=== PATIENT | male | born 1980 | race Caucasian/White ===

== ENCOUNTER 2017-06-03 13:49 | Inpatient (IN) | payer OTHER ==
[2017-06-03] MEDS ORDERED: NORMAL SALINE 1000 ML 1,000 ML IV ONE (14:52)
--- NOTE | 2017-06-03 14:53 | ER Document Report ---
ED Medical Screen (RME) - General Chief Complaint: Fever Stated Complaint: FEVER Time Seen by Provider: 06/03/17 14:44 Notes: 36-year-old male here with 10 days of fevers (up to 102.6 Fahrenheit) as well as 4 days of dry cough. He has been taking Advil and Tylenol for the symptoms and these medications have helped significantly with the fever. He denies any runny nose sore throat ear pain chest pain shortness of breath nausea vomiting diarrhea abdominal pain dysuria frequency hesitancy. He has not been bitten by a tick recently. What concerned him today is that his heart rate was very elevated so he came here. His resting heart rate is usually in the 70s, he reports. EXAM Moderately tachycardic low 130s TRAVEL OUTSIDE OF THE [place] IN LAST 30 DAYS: No - Related Data Allergies/Adverse Reactions: No Known Allergies Allergy (Verified 06/03/17 13:50) Physical Exam - Vital signs Vitals: Temp Pulse Resp BP Pulse Ox 98.5 F 136 H 18 146/78 H 100 06/03/17 14:08 06/03/17 14:08 06/03/17 14:08 06/03/17 14:08 06/03/17 14:08 Course - Vital Signs Vital signs: Temp Pulse Resp BP Pulse Ox 98.5 F 136 H 18 146/78 H 100 06/03/17 14:08 06/03/17 14:08 06/03/17 14:08 06/03/17 14:08 06/03/17 14:08
[2017-06-03 15:15] LABS: APPEARANCE,URINE CLEAR; BILIRUBIN,URINE NEGATIVE (NEGATIVE); COLOR,URINE STRAW; GLUCOSE, URINE NEGATIVE (NEGATIVE); KETONES,URINE NEGATIVE (NEGATIVE); LEUKOCYTE ESTERASE,URINE NEGATIVE (NEGATIVE); NITRITE,URINE NEGATIVE (NEGATIVE); PROTEIN,URINE NEGATIVE (NEGATIVE); URINE SPECIFIC GRAVITY 1.005; UROBILINOGEN,URINE NEGATIVE mg/dL (<2.0)
[2017-06-03 15:48] LABS: ALANINE AMINOTRANSFERASE 45 U/L (21-72); ALBUMIN 4.3 g/dL (3.5-5.0); ALKALINE PHOSPHATASE 59 U/L (38-126); ANION GAP 15 (5-19); ASPARTATE AMINO TRANSFERASE 25 U/L (17-59); BILIRUBIN,DIRECT 0.2 mg/dL (0.0-0.4); BILIRUBIN,TOTAL 0.3 mg/dL (0.2-1.3); BLOOD UREA NITROGEN 15 mg/dL (7-20); CALCIUM 10.1 mg/dL (8.4-10.2); CARBON DIOXIDE 28 mmol/L (22-30); CHLORIDE 104 mmol/L (98-107); GLUCOSE 95 mg/dL (75-110); POTASSIUM 4.8 mmol/L (3.6-5.0); SODIUM 146.6 mmol/L (137-145); TOTAL PROTEIN 7.2 g/dL (6.3-8.2)
[2017-06-03 15:50] LABS: ABSOLUTE EOSINOPHILS # (AUTO) 0.1 10^3/uL (0.0-0.6); ABSOLUTE LYMPHOCYTES (AUTO) 0.9 10^3/uL (0.5-4.7); ABSOLUTE MONOCYTES (AUTO) 0.9 10^3/uL (0.1-1.4); ABSOLUTE NEUT (AUTO) 5.3 10^3/uL (1.7-8.2); BASOPHILS % (AUTO) 0.4 % (0-2); EOSINOPHILS % (AUTO) 0.9 % (0-6); HEMATOCRIT 45.5 % (37.9-51.0); HEMOGLOBIN 15.2 g/dL (13.5-17.0); LYMPHOCYTES % (AUTO) 12.9 % (13-45); MEAN CORPUSCULAR HEMOGLOBIN 30.5 pg (27.0-33.4); MEAN CORPUSCULAR HGB CONC 33.4 g/dL (32.0-36.0); MEAN CORPUSCULAR VOLUME 91 fl (80-97); MONOCYTES % (AUTO) 12.9 % (3-13); PLATELET COUNT 348 10^3/uL (150-450); RED BLOOD COUNT 4.99 10^6/uL (4.35-5.55); RED CELL DISTRIBUTION WIDTH 13.5 % (11.5-14.0); SEGMENTED NEUTROPHILS % (AUTO) 72.9 % (42-78); TOTAL CELLS COUNTED % (AUTO) 100 %; WHITE BLOOD COUNT 7.3 10^3/uL (4.0-10.5)
--- NOTE | 2017-06-03 15:58 | RADIOLOGY REPORT (SQ) ---
EXAM DESCRIPTION: CHEST PA/LAT COMPLETED DATE/TIME: 06/03/2017 3:46 pm REASON FOR STUDY: fever, tachycardic; eval for pneumonia COMPARISON: None. EXAM PARAMETERS: NUMBER OF VIEWS: two views TECHNIQUE: Digital Frontal and Lateral radiographic views of the chest acquired. RADIATION DOSE: NA LIMITATIONS: none FINDINGS: LUNGS AND PLEURA: Abnormal increased density in the left upper lobe consistent with pneumo brandon. Remainder lungs are clear. No effusions are identified. MEDIASTINUM AND HILAR STRUCTURES: No masses or contour abnormalities. HEART AND VASCULAR STRUCTURES: Heart normal size. No evidence for failure. BONES: No acute findings. HARDWARE: None in the chest. OTHER: No other significant finding. IMPRESSION: Left upper lobe pneumonia. TECHNICAL DOCUMENTATION: JOB ID: [id number] [employer]- All Rights Reserved
[2017-06-03] MEDS ORDERED: CEFTRIAXONE 1 GM/D5W RTU 1 GM/50 ML RTUPB IV ONE (15:59)
--- NOTE | 2017-06-03 16:17 | ER Document Report ---
ED Fever - General Mode of Arrival: Ambulatory Information source: Patient TRAVEL OUTSIDE OF THE [place] IN LAST 30 DAYS: No - HPI Patient complains to provider of: Fever Onset: Other - 9 days ago Associated symptoms: Other - see notes above <JANNIE DEAL - Last Filed: 06/03/17 17:04> <ANDIMASSIMOROBIN - Last Filed: 06/03/17 19:08> - General Chief Complaint: Fever Stated Complaint: FEVER Time Seen by Provider: 06/03/17 14:44 Notes: 36 year old male with history of hypertension (medicated with Losarten) and Raynaud's presents to the ED complaining of having a fever that started 9 days ago. Patient reports that he has been alternating Advil and Tylenol every 4 hours with some improvement. Patient reports that over the past 3 days his temperature has been steady at 99F, with spikes into 101F. Patient additionally complains of a non-productive cough that started 6 days ago (used Delsym today) , racing heart, rhinorrhea, and mild chest tightness, but no pain. Patient denies vomiting or diarrhea. Patient recently had a 2.5 hour flight from [place], [place]. No history of blood clots. Patient has no concerns over HIV or any other STDs. Patient denies having sex with other men or prostitutes. (JANNIE DEAL) - Related Data Allergies/Adverse Reactions: No Known Allergies Allergy (Verified 06/03/17 13:50) Home Medications: Current Home Medications Losartan Potassium [Cozaar 25 mg Tablet] 25 mg PO DAILY 06/03/17 [History] Past Medical History - General Information source: Patient - Social History Smoking Status: Never Smoker Chew tobacco use (# tins/day): No Frequency of alcohol use: None Drug Abuse: None Family History: Reviewed & Not Pertinent Patient has suicidal ideation: No Patient has homicidal ideation: No - Past Medical History Cardiac Medical History: Reports: Hx Hypertension Renal/ Medical History: Denies: Hx Peritoneal Dialysis Musculoskeltal Medical History: Reports Other - Raynaud's <JANNIE DEAL - Last Filed: 06/03/17 17:04> Review of Systems - Review of Systems Constitutional: See HPI, Fever EENT: See HPI, Nose discharge Cardiovascular: See HPI, Heart racing Respiratory: See HPI, Cough. denies: Sputum Gastrointestinal: No symptoms reported. denies: Diarrhea, Vomiting Genitourinary: No symptoms reported Male Genitourinary: No symptoms reported Musculoskeletal: No symptoms reported Skin: No symptoms reported Hematologic/Lymphatic: No symptoms reported Neurological/Psychological: No symptoms reported -: Yes All other systems reviewed and negative <JANNIE DEAL - Last Filed: 06/03/17 17:04> Physical Exam <JANNIE DEAL - Last Filed: 06/03/17 17:04> <ROBIN SANTOS - Last Filed: 06/03/17 19:08> - Vital signs Vitals: Temp Pulse Resp BP Pulse Ox 98.5 F 136 H 18 146/78 H 100 06/03/17 14:08 06/03/17 14:08 06/03/17 14:08 06/03/17 14:08 06/03/17 14:08 - Notes Notes: GENERAL: Alert, interacts well. No acute distress. HEAD: Normocephalic, atraumatic. EYES: Pupils equal, round, and reactive to light. Extraocular movements intact. ENT: Oral mucosa moist, tongue midline. NECK: Full range of motion. Supple. Trachea midline. LUNGS: Clear to auscultation bilaterally, no wheezes, rales, or rhonchi. No respiratory distress. HEART: Tachycardic with regular rhythm. No murmurs, gallops, or rubs. ABDOMEN: Soft, non-tender. Non-distended. Bowel sounds present in all 4 quadrants. EXTREMITIES: Moves all 4 extremities spontaneously. No edema, radial and dorsalis pedis pulses 2/4 bilaterally. No cyanosis. Purple-blue hands with capillary refill of 4 seconds consistent with Raynaud's. NEUROLOGICAL: Alert and oriented x3. Normal speech. PSYCH: Normal affect, normal mood. SKIN: Warm, dry, normal turgor. No rashes or lesions noted. See extremity exam above. (JANNIE DEAL) Dry cough. (ROBIN SANTOS) Course - Laboratory Result Diagrams: 06/03/17 15:10 06/03/17 15:10 - Consults Dr. Caal Time consulted: 16:14 <JANNIE DEAL - Last Filed: 06/03/17 17:04> - Laboratory Result Diagrams: 06/03/17 15:10 06/03/17 15:10 <ROIBN SANTOS - Last Filed: 06/03/17 19:08> - Re-evaluation Re-evalutation: 06/03/17 16:17 CBC grossly unremarkable, CMP is slightly elevated sodium 146.6 otherwise unremarkable, urinalysis does not show any signs of dehydration or blood, chest x-ray shows left upper lobe pneumonia as per radiology. Given his persistent tachycardia despite rehydration in the setting of pneumonia I do feel this patient should be hospitalized, discussed the case with Dr. Caal of the hospitalist service who agrees to admit the patient to his service for left upper lobe pneumonia. Patient is being treated with Rocephin and hydration. Also will be given Tessalon Perles to decrease his cough. EKG shows tachycardia without strain. 06/03/17 16:19 Patient is known to be hypertensive, hypertension will continue to be managed by hospitalist service. (ROBIN SANTOS) - Vital Signs Vital signs: Temp Pulse Resp BP Pulse Ox 99.8 F 136 H 16 147/94 H 100 06/03/17 18:05 06/03/17 14:08 06/03/17 18:00 06/03/17 17:01 06/03/17 18:00 - Laboratory Laboratory results interpreted by me: 06/03/17 06/03/17 15:10 15:10 Lymphocytes % 12.9 L Sodium 146.6 H - EKG Interpretation by Me Additional EKG results interpreted by me: 06/03/17 16:18 EKG shows sinus tachycardia at a rate of 126, normal axis, normal intervals, no ST segment elevations or depressions, no T-wave inversions per my interpretation. (ROBIN SANTOS) - Consults Dr. Caal Reason for consultation: 06/03/17 16:14 Patient was discussed with Dr. Caal who agrees to admit the patient. (JANNIE DEAL) Discharge <JANNIE DEAL - Last Filed: 06/03/17 17:04> - Discharge Admitting Provider: Ana caal Unit Admitted: Telemetry <ROBIN SANTOS - Last Filed: 06/03/17 19:08> - Discharge Clinical Impression: Left upper lobe pneumonia Qualifiers: Pneumonia type: due to unspecified organism Qualified Code(s): J18.1 - Lobar pneumonia, unspecified organism Hypertension Qualifiers: Hypertension type: unspecified Qualified Code(s): I10 - Essential (primary) hypertension Condition: Fair Disposition: ADMITTED INPATIENT Scribe Attestation: 06/03/17 19:08 I personally performed the services described in the documentation, reviewed and edited the documentation which was dictated to the scribe in my presence, and it accurately records my words and actions. (ROBIN SANTOS) Scribe Documentation - Scribe Written by Shanellibe:: Jose Price, 06/03/2017 1630 acting as scribe for :: Erick <JANNIE DEAL - Last Filed: 06/03/17 17:04>
[2017-06-03 16:18] LABS: A TYPE INFLUENZA AG NEGATIVE (NEGATIVE); B INFLUENZA AG NEGATIVE (NEGATIVE)
[2017-06-03] MEDS ORDERED: BENZONATATE 100 MG CAPSULE PO ONE (16:18)
[2017-06-03] MEDS ORDERED: ACETAMINOPHEN 325 MG TABLET PO PRN (17:10)
[2017-06-03] MEDS ORDERED: MAG HYDROX/AL HYDROX/SIMETH SUSP 30 ML UDCUP PO PRN (17:10)
[2017-06-03] MEDS ORDERED: ZOLPIDEM TARTRATE 5 MG TABLET PO PRN (17:10)
[2017-06-03] MEDS ORDERED: 1/2 NORMAL SALINE 1,000 ML IV PRN (17:10)
[2017-06-03] MEDS ORDERED: OXYCODONE-ACETAMINOPHEN 5-325 MG TABLET PO PRN (17:10)
[2017-06-03] MEDS ORDERED: MAGNESIUM HYDROXIDE SUSP 30 ML UDCUP PO PRN (17:10)
[2017-06-03] MEDS ORDERED: ONDANSETRON HCL INJ/PF 4 MG/2 ML SDV IV PRN (17:10)
--- NOTE | 2017-06-03 17:30 | PDOC H&P ---
History of Present Illness Admission Date/PCP: 06/03/17 17:08 Patient complains of: Fever and cough History of Present Illness: MARTINEZ MAHMOOD III is a 36 year old male with a history of hypertension who presented to the emergency department today with a 9 day history of fever and cough. The cough actually began about 4-5 days ago. He is visiting from [place]. He is here in [place] visiting family. Prior to leaving [place] he visited an urgent care where he was diagnosed with a URI. Unfortunately his symptoms did not improve. He was self-medicating himself with Advil. At times his symptoms would improve, then returned. Because of the persistent nature of his symptoms, he came to the ED for further evaluation. His cough has been dry. He has not experienced shortness of breath or chest pain. He does not have any GI symptoms. He has not been around other sick individuals. He has not traveled out of the country in the past 2 years. 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 He is a non-smoker. Past Medical History Cardiac Medical History: Reports: Hypertension Musculoskeltal Medical History: Reports: Other - Raynaud's Past Surgical History Past Surgical History: Reports: None Social History Information Source: Patient Lives with: Family Smoking Status: Never Smoker Frequency of Alcohol Use: Occasional Hx Recreational Drug Use: No Drugs: None - Advance Directive Resuscitation Status: Full Code Family History Family History: Reviewed & Not Pertinent Parental Family History Reviewed: No Children Family History Reviewed: No Sibling(s) Family History Reviewed.: No Medication/Allergy Home Medications: Losartan Potassium [Cozaar 25 mg Tablet] 25 mg PO DAILY 06/03/17 Allergies/Adverse Reactions: No Known Allergies Allergy (Verified 06/03/17 13:50) Review of Systems Constitutional: PRESENT: fever(s). ABSENT: chills, fatigue, night sweats Nose, Mouth, and Throat: ABSENT: headache(s) Cardiovascular: ABSENT: chest pain, palpitations Respiratory: PRESENT: cough. ABSENT: dyspnea, hemoptysis, sputum Gastrointestinal: ABSENT: abdominal pain, constipation, diarrhea, hematemesis, hematochezia, nausea, vomiting Genitourinary: ABSENT: dysuria, hematuria Musculoskeletal: ABSENT: joint swelling Neurological: ABSENT: abnormal gait, abnormal speech, confusion, dizziness, focal weakness, syncope Psychiatric: ABSENT: anxiety, depression, homidical ideation, suicidal ideation Endocrine: ABSENT: cold intolerance, heat intolerance, polydipsia, polyuria Hematologic/Lymphatic: ABSENT: easy bleeding, easy bruising Physical Exam Vital Signs: Temp Pulse Resp BP Pulse Ox 98.5 F 136 H 18 146/78 H 100 06/03/17 14:08 06/03/17 14:08 06/03/17 14:08 06/03/17 14:08 06/03/17 14:08 General appearance: PRESENT: no acute distress, cooperative, thin Head exam: PRESENT: atraumatic, normocephalic Eye exam: PRESENT: conjunctiva pink, EOMI, PERRLA Mouth exam: PRESENT: moist, neck supple, tongue midline Throat exam: ABSENT: tonsillar erythema, tonsillar exudate Neck exam: PRESENT: full ROM Respiratory exam: PRESENT: clear to auscultation carlos, symmetrical, unlabored. ABSENT: accessory muscle use Cardiovascular exam: PRESENT: tachycardia. ABSENT: gallop, rubs, systolic murmur GI/Abdominal exam: PRESENT: normal bowel sounds, soft. ABSENT: distended, guarding, mass, organolmegaly, rebound, tenderness Musculoskeletal exam: PRESENT: ambulatory Neurological exam: PRESENT: alert, awake, oriented to person, oriented to place , oriented to time, oriented to situation, CN II-XII grossly intact. ABSENT: motor sensory deficit Psychiatric exam: PRESENT: appropriate affect, normal mood. ABSENT: homicidal ideation, suicidal ideation Skin exam: PRESENT: dry, intact, warm. ABSENT: cyanosis, rash Results Laboratory Results: Labs- All tests 24 hr 06/03/17 06/03/17 06/03/17 13:52 15:10 15:10 WBC 7.3 RBC 4.99 Hgb 15.2 Hct 45.5 MCV 91 MCH 30.5 MCHC 33.4 RDW 13.5 Plt Count 348 Seg Neutrophils % 72.9 Lymphocytes % 12.9 L Monocytes % 12.9 Eosinophils % 0.9 Basophils % 0.4 Absolute Neutrophils 5.3 Absolute Lymphocytes 0.9 Absolute Monocytes 0.9 Absolute Eosinophils 0.1 Absolute Basophils 0.0 Sodium 146.6 H Potassium 4.8 Chloride 104 Carbon Dioxide 28 Anion Gap 15 BUN 15 Creatinine 0.78 Est GFR ( Amer) > 60 Est GFR (Non-Af Amer) > 60 Glucose 95 Calcium 10.1 Total Bilirubin 0.3 Direct Bilirubin 0.2 Neonat Total Bilirubin Not Reportable Neonat Direct Bilirubin Not Reportable Neonat Indirect Bili Not Reportable AST 25 ALT 45 Alkaline Phosphatase 59 Total Protein 7.2 Albumin 4.3 Lipase 196.0 Urine Color STRAW Urine Appearance CLEAR Urine pH 7.0 Ur Specific Brandywine 1.005 Urine Protein NEGATIVE Urine Glucose (UA) NEGATIVE Urine Ketones NEGATIVE Urine Blood NEGATIVE Urine Nitrite NEGATIVE Urine Bilirubin NEGATIVE Urine Urobilinogen NEGATIVE Ur Leukocyte Esterase NEGATIVE Urine WBC (Auto) 1 Urine RBC (Auto) 0 Urine Mucus (Auto) RARE Urine Ascorbic Acid NEGATIVE Influenza A (Rapid) Influenza B (Rapid) 06/03/17 15:11 WBC RBC Hgb Hct MCV MCH MCHC RDW Plt Count Seg Neutrophils % Lymphocytes % Monocytes % Eosinophils % Basophils % Absolute Neutrophils Absolute Lymphocytes Absolute Monocytes Absolute Eosinophils Absolute Basophils Sodium Potassium Chloride Carbon Dioxide Anion Gap BUN Creatinine Est GFR ( Amer) Est GFR (Non-Af Amer) Glucose Calcium Total Bilirubin Direct Bilirubin Neonat Total Bilirubin Neonat Direct Bilirubin Neonat Indirect Bili AST ALT Alkaline Phosphatase Total Protein Albumin Lipase Urine Color Urine Appearance Urine pH Ur Specific Brandywine Urine Protein Urine Glucose (UA) Urine Ketones Urine Blood Urine Nitrite Urine Bilirubin Urine Urobilinogen Ur Leukocyte Esterase Urine WBC (Auto) Urine RBC (Auto) Urine Mucus (Auto) Urine Ascorbic Acid Influenza A (Rapid) NEGATIVE Influenza B (Rapid) NEGATIVE Impressions: Chest X-Ray 06/03/17 14:52 IMPRESSION: Left upper lobe pneumonia. Assessment & Plan - Diagnosis (1) Left upper lobe pneumonia Qualifiers: Pneumonia type: due to unspecified organism Qualified Code(s): J18.1 - Lobar pneumonia, unspecified organism Is this a current diagnosis for this admission?: Yes Plan: Continue ceftriaxone 1 g IV daily. Add azithromycin 500 mg IV today followed by 250 mg daily for additional 4 days. Tessalon Perles as needed for cough (2) Hypertension Qualifiers: Hypertension type: unspecified Qualified Code(s): I10 - Essential (primary ) hypertension Is this a current diagnosis for this admission?: Yes Plan: Continue losartan 25 mg daily (3) Sinus tachycardia Is this a current diagnosis for this admission?: Yes Plan: Secondary to #1. Continue IV fluids. - Time Time Spent: Greater than 70 Minutes Medications reviewed and adjusted accordingly: Yes Anticipated discharge: Home Within: within 48 hours - Inpatient Certification Based on my medical assessment, after consideration of the patient's comorbidities, presenting symptoms, or acuity I expect that the services needed warrant INPATIENT care.: Yes I certify that my determination is in accordance with my understanding of Medicare's requirements for reasonable and necessary INPATIENT services [42 CFR 412.3e].: Yes Medical Necessity: Need For IV Fluids, Need For Continuous Telemetry Monitoring , Need for IV Antibiotics
[2017-06-03] MEDS ORDERED: AZITHROMYCIN 500 MG in DEXTROSE 5%-WATER 250 ML IV SCH ×2 (18:00→22:00)
[2017-06-04] MEDS: BENZONATATE 100 MG CAPSULE PO PRN ×2 (03:42→12:19)
[2017-06-04 06:07] LABS: ABSOLUTE EOSINOPHILS # (AUTO) 0.1 10^3/uL (0.0-0.6); ABSOLUTE LYMPHOCYTES (AUTO) 1.5 10^3/uL (0.5-4.7); ABSOLUTE MONOCYTES (AUTO) 1.1 10^3/uL (0.1-1.4); ABSOLUTE NEUT (AUTO) 4.4 10^3/uL (1.7-8.2); BASOPHILS % (AUTO) 0.4 % (0-2); EOSINOPHILS % (AUTO) 1.2 % (0-6); HEMATOCRIT 37.8 % (37.9-51.0); LYMPHOCYTES % (AUTO) 20.8 % (13-45); MEAN CORPUSCULAR HEMOGLOBIN 30.7 pg (27.0-33.4); MEAN CORPUSCULAR VOLUME 90 fl (80-97); MONOCYTES % (AUTO) 15.8 % (3-13); PLATELET COUNT 266 10^3/uL (150-450); RED BLOOD COUNT 4.19 10^6/uL (4.35-5.55); RED CELL DISTRIBUTION WIDTH 13.1 % (11.5-14.0); SEGMENTED NEUTROPHILS % (AUTO) 61.8 % (42-78); TOTAL CELLS COUNTED % (AUTO) 100 %; WHITE BLOOD COUNT 7.1 10^3/uL (4.0-10.5)
[2017-06-04 06:11] LABS: HEMOGLOBIN 12.9 g/dL (13.5-17.0)
[2017-06-04 06:20] LABS: ALANINE AMINOTRANSFERASE 31 U/L (21-72); ALBUMIN 3.3 g/dL (3.5-5.0); ALKALINE PHOSPHATASE 48 U/L (38-126); ANION GAP 12 (5-19); ASPARTATE AMINO TRANSFERASE 18 U/L (17-59); BILIRUBIN,DIRECT 0.2 mg/dL (0.0-0.4); BILIRUBIN,TOTAL 0.3 mg/dL (0.2-1.3); BLOOD UREA NITROGEN 9 mg/dL (7-20); CALCIUM 8.9 mg/dL (8.4-10.2); CARBON DIOXIDE 24 mmol/L (22-30); CHLORIDE 105 mmol/L (98-107); GLUCOSE 96 mg/dL (75-110); MAGNESIUM 1.9 mg/dL (1.6-2.3); PHOSPHORUS 3.9 mg/dL (2.5-4.5); POTASSIUM 4.3 mmol/L (3.6-5.0); SODIUM 141.2 mmol/L (137-145); TOTAL PROTEIN 6.1 g/dL (6.3-8.2)
--- NOTE | 2017-06-04 07:55 | EKG REPORT ---
SEVERITY:- OTHERWISE NORMAL ECG - SINUS TACHYCARDIA : Confirmed by: Betzy Romero MD 04-Jun-2017 07:54:32
--- NOTE | 2017-06-04 09:03 | PDOC DISCHARGE SUMMARY ---
General - Admit/Disc Date/PCP Admission Date/Primary Care Provider: 06/03/17 17:08 Discharge Date: 06/04/17 - Discharge Diagnosis (1) Left upper lobe pneumonia Is this a current diagnosis for this admission?: Yes (2) Hypertension Is this a current diagnosis for this admission?: Yes (3) Sinus tachycardia Is this a current diagnosis for this admission?: Yes - Additional Information Resuscitation Status: Full Code Discharge Diet: Regular Discharge Activity: Activity As Tolerated Prescriptions: Benzonatate [Tessalon Perles 100 mg Capsule] 100 mg PO Q8HP PRN 10 Days #30 capsule PRN Reason: Azithromycin 250 mg PO DAILY 3 Days #3 tablet Cefdinir [Omnicef 300 mg Capsule] 1 cap PO BID 8 Days #16 capsule Home Medications: Losartan Potassium [Cozaar 25 mg Tablet] 25 mg PO DAILY 06/03/17 Azithromycin 250 mg PO DAILY 3 Days #3 tablet 06/04/17 Benzonatate [Tessalon Perles 100 mg Capsule] 100 mg PO Q8HP PRN 10 Days #30 capsule 06/04/17 Cefdinir [Omnicef 300 mg Capsule] 1 cap PO BID 8 Days #16 capsule 06/04/17 History of Present Illness Patient complains of: Fever and cough History of Present Illness: MARTINEZ MAHMOOD III is a 36 year old male with a history of hypertension who presented to the emergency department today with a 9 day history of fever and cough. The cough actually began about 4-5 days ago. He is visiting from [place]. He is here in [place] visiting family. Prior to leaving [place] he visited an urgent care where he was diagnosed with a URI. Unfortunately his symptoms did not improve. He was self-medicating himself with Advil. At times his symptoms would improve, then returned. Because of the persistent nature of his symptoms, he came to the ED for further evaluation. His cough has been dry. He has not experienced shortness of breath or chest pain. He does not have any GI symptoms. He has not been around other sick individuals. He has not traveled out of the country in the past 2 years. 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 Hospital Course Hospital Course: Mr. Mahmood was started on ceftriaxone and IV azithromycin. He was treated with IV fluids. He was given Tessalon Perles as needed for cough. His heart rate improved prior to discharge. He remained afebrile. He did not experience any adverse effects from the antibiotics. His hospital stay was uneventful. Physical Exam Vital Signs: Temp Pulse Resp BP Pulse Ox 98.7 F 102 H 13 135/65 H 99 06/04/17 04:00 06/04/17 07:00 06/04/17 04:00 06/04/17 04:00 06/04/17 04:00 Intake & Output 06/03/17 06/04/17 06/05/17 06:59 06:59 06:59 Intake Total 2507 Output Total 2225 Balance 282 Weight 65 kg General appearance: PRESENT: no acute distress, thin Head exam: PRESENT: atraumatic, normocephalic Respiratory exam: PRESENT: clear to auscultation carlos, unlabored. ABSENT: accessory muscle use Neurological exam: PRESENT: alert, awake, oriented to person, oriented to place , oriented to time, oriented to situation, CN II-XII grossly intact. ABSENT: motor sensory deficit Results Laboratory Results: 06/04/17 05:26 06/04/17 05:26 06/04/17 06/04/17 05:26 05:26 WBC 7.1 RBC 4.19 L Hgb 12.9 L D Hct 37.8 L MCV 90 MCH 30.7 MCHC 34.0 RDW 13.1 Plt Count 266 Seg Neutrophils % 61.8 Lymphocytes % 20.8 Monocytes % 15.8 H Eosinophils % 1.2 Basophils % 0.4 Absolute Neutrophils 4.4 Absolute Lymphocytes 1.5 Absolute Monocytes 1.1 Absolute Eosinophils 0.1 Absolute Basophils 0.0 Sodium 141.2 Potassium 4.3 Chloride 105 Carbon Dioxide 24 Anion Gap 12 BUN 9 Creatinine 0.68 Est GFR ( Amer) > 60 Est GFR (Non-Af Amer) > 60 Glucose 96 Calcium 8.9 Phosphorus 3.9 Magnesium 1.9 Total Bilirubin 0.3 AST 18 ALT 31 Alkaline Phosphatase 48 Total Protein 6.1 L Albumin 3.3 L Impressions: Chest X-Ray 06/03/17 14:52 IMPRESSION: Left upper lobe pneumonia. Qualifiers PATEINT BEING DISCHARGED WITH ANY OF THE FOLLOWING DIAGNOSIS?: No Plan Discharge Plan: Follow-up with primary care physician in 2-3 weeks. He will need a repeat chest x-ray in 4-6 weeks. Time Spent: Greater than 30 Minutes - 35 minutes
[2017-06-04] MEDS ORDERED: AZITHROMYCIN 500 MG in DEXTROSE 5%-WATER 250 ML IV ONE (10:00)
[2017-06-04] MEDS ORDERED: CEFTRIAXONE 1 GM/D5W RTU 1 GM/50 ML RTUPB IV ONE (10:00)
[2017-06-04] MEDS ORDERED: LOSARTAN POTASSIUM 25 MG TABLET PO SCH (10:00)
[2017-06-04] MEDS ORDERED: ENOXAPARIN SODIUM INJ 40 MG/0.4 ML DISP.SYRIN SUBCUT SCH (10:00)
[2017-06-04 12:17] VITALS: BP 145/78
[2017-06-04] MEDS ORDERED: CEFTRIAXONE 1 GM/D5W RTU 1 GM/50 ML RTUPB IV SCH (16:00)
== END 2017-06-04 13:30 | disposition home or self-care (01) | DRG 195 ==
LOC: ER 13:49 → EH 17:08 → 5 19:41
PROVIDERS: ADMIT Pediatrics; ATTEND Pediatrics
DX: J18.1 Lobar pneumonia, unspecified organism (principal); I10 Essential (primary) hypertension; R00.0 Tachycardia, unspecified; I73.00 Raynaud's syndrome without gangrene; Z79.899 Other long term (current) drug therapy
CPT/HCPCS: 36415; 71020; 80053; 81001; 83690; 83735; 84100; 85025; 87040; 87086; 87804; 93005; 93010; 96360; 99285; J0456; J0696; J7030; J7060